=== PATIENT | female | born 1995 | race Caucasian/White ===

== ENCOUNTER 2017-11-17 09:06 | Emergency (ER) | payer OTHER ==
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
== END 2017-11-17 10:42 | disposition home or self-care (01) ==
LOC: ERS 09:06
DX: S57.81XA Crushing injury of right forearm, initial encounter (principal); S50.811A Abrasion of right forearm, initial encounter; W23.0XXA Caught, crushed, jammed, or pinched between moving objects, initial encounter
CPT/HCPCS: G0390